=== PATIENT | female | born 1955 ===

== ENCOUNTER 2024-07-18 11:30 | Inpatient (IN) | payer OTHER ==
[~2024-07-18] VITALS: Ht 165.1 cm; Wt 79.4 kg
[~2024-07-18 11:30] MED LIST: ARICEPT10 MG PO; ATIVAN0.5 M1 PO; BENADRYL25 MG PO; BENTIL; MELATONIN10 MG PO; OMEPRAZOLE20 MG PO; VITAMIN B125000 MCG PO; VITAMIN C100 MG; ZOLOFT100 MG PO; ZOLPIDEM TART1.75 MG
[2024-07-24] MEDS ORDERED: ERTAPENEM SODIUM 1,000 MG VIAL ONE (10:33)
[2024-07-24] MEDS ORDERED: DICY20TA (15:23)
[2024-07-24] MEDS ORDERED: ONDANSETRON HCL 2 MG/ML VIAL IV PRN (16:30)
[2024-07-24] MEDS ORDERED: RINGERS SOLUTION,LACTATED 1,000 ML IV SCH (16:30)
[2024-07-24] MEDS ORDERED: METOCLOPRAMIDE HCL 5 MG/ML VIAL IV SCH (17:00)
[2024-07-24] MEDS ORDERED: POLYETHYLENE GLYCOL 3350 17 GM BLIST.PACK PO SCH (17:00)
[2024-07-24] MEDS ORDERED: HYOSCYAMINE SULFATE 0.125 MG TAB.SUBL SL SCH (17:00)
[2024-07-24] MEDS ORDERED: GABAPENTIN 300 MG CAPSULE PO SCH (17:00)
[2024-07-24] MEDS ORDERED: SIMETHICONE 125 MG CAPSULE PO SCH (17:00)
[2024-07-24] MEDS ORDERED: MORPHINE SULFATE 4 MG/ML VIAL IV ONE ×2 (17:05→18:05)
[2024-07-24 18:23] LABS: BASO % 0.2 % (0.1-1.2); EOS # 0.01 (0.04-0.54); EOS % 0.2 % (0.7-7.0); HEMATOCRIT 41.2 % (34.1-44.9); HEMOGLOBIN 13.9 g/dL (11.2-15.7); LYMPH # 1.31 (1.18-3.74); LYMPH % 21.3 % (19.3-53.1); MEAN CORPUSCULAR HEMOGLOBIN 29.4 pg (25.6-32.2); MONO # 0.46 (0.24-0.82); MONO % 7.5 % (4.7-12.5); NEUT # 4.34 (1.56-6.13); NEUT % 70.5 % (34.0-71.1); PLATELET COUNT 228 K/uL (163-369); RED BLOOD COUNT 4.72 M/uL (3.93-5.22); RED CELL DISTRIBUTION WIDTH 13.2 % (11.6-14.4)
[2024-07-24] MEDS ORDERED: ACETAMINOPHEN 500 MG GEL..CAP PO SCH (20:00)
[2024-07-24] MEDS ORDERED: PATIENTS OWN MEDICATION (MEDICAMENTO EN PISO) PO SCH (21:00)
[2024-07-24] MEDS ORDERED: SERTRALINE HCL 50 MG TABLET PO SCH (21:00)
[2024-07-24] MEDS ORDERED: PRIMIDONE 50 MG TABLET PO SCH (21:00)
[2024-07-24] MEDS ORDERED: FAMOTIDINE/PF 20 MG/2 ML VIAL IV PUSH SCH (21:00)
[2024-07-24] MEDS ORDERED: FAMOTIDINE/PF 20 MG/2 ML VIAL ONE (21:19)
[2024-07-24 21:40] VITALS: BP 172/122; O2SAT 95
[2024-07-24] MEDS ORDERED: ENALAPRILAT DIHYDRATE 1.25 MG/ML VIAL IV ONE (23:00)
[2024-07-24] MEDS ORDERED: LABETALOL HCL 100 MG/20 ML ML IV ONE (23:00)
[2024-07-24] MEDS ORDERED: TRAMADOL HCL 50 MG TABLET PO ONE (23:00)
[2024-07-24 23:09] VITALS: BP 144/83
[2024-07-25] MEDS ORDERED: TRAMADOL HCL 50 MG TABLET PO PRN
[2024-07-25 01:05] VITALS: BP 135/89; O2SAT 100
[2024-07-25 08:00] VITALS: BP 101/66; O2SAT 97
[2024-07-25] MEDS ORDERED: LACTOBACILLUS ACIDOPHILUS 1 CAP CAP PO SCH (09:00)
[2024-07-25] MEDS ORDERED: LACTULOSE 20 G/30 ML BLIST.PACK PO SCH (09:00)
[2024-07-25 09:40] LABS: BASO % 0.1 % (0.1-1.2); HEMATOCRIT 38.7 % (34.1-44.9); HEMOGLOBIN 12.8 g/dL (11.2-15.7); LYMPH # 0.82 (1.18-3.74); LYMPH % 8.3 % (19.3-53.1); MEAN CORPUSCULAR HEMOGLOBIN 28.6 pg (25.6-32.2); MONO # 0.57 (0.24-0.82); MONO % 5.8 % (4.7-12.5); NEUT # 8.48 (1.56-6.13); NEUT % 85.5 % (34.0-71.1); PLATELET COUNT 221 K/uL (163-369); RED BLOOD COUNT 4.48 M/uL (3.93-5.22); RED CELL DISTRIBUTION WIDTH 13.3 % (11.6-14.4)
[2024-07-25 10:40] LABS: ALBUMIN 2.6 gm/dL (3.4-5.0); CALCIUM 8.2 mg/dL (8.5-10.1); CREATININE SERUM 0.73 mg/dL (0.55-1.02); GFR 79.05; MAGNESIUM 1.6 mg/dL (1.8-2.4); PHOSPHOROUS 3.8 mg/dL (2.5-4.9); POTASSIUM 4.74 mEq/L (3.5-5.1)
[2024-07-25] MEDS ORDERED: MAGNESIUM SULFATE IN WATER 50 ML IV ONE (11:45)
[2024-07-25] MEDS ORDERED: ENOXAPARIN SODIUM 40 MG/0.4 ML SYRINGE SUBCUTANEO SCH (17:00)
[2024-07-25] MEDS ORDERED: SIMVASTATIN 20 MG TABLET PO SCH (17:00)
[2024-07-25 17:44] VITALS: BP 128/82; O2SAT 95
[2024-07-25] MEDS ORDERED: ZOLPIDEM TARTRATE 10 MG TABLET PO SCH (21:00)
[2024-07-25] MEDS ORDERED: LORazepam 0.5 MG TABLET PO SCH (21:00)
[2024-07-26 01:16] VITALS: BP 116/71; O2SAT 97
[2024-07-26 08:00] VITALS: BP 142/94; O2SAT 99
[2024-07-26] MEDS ORDERED: ENOXAPARIN SODIUM 40 MG/0.4 ML SYRINGE SUBCUTANEO SCH (09:00)
[2024-07-26 11:36] LABS: BASO % 0.1 % (0.1-1.2); EOS # 0.04 (0.04-0.54); EOS % 0.5 % (0.7-7.0); HEMOGLOBIN 12.7 g/dL (11.2-15.7); LYMPH # 0.41 (1.18-3.74); LYMPH % 4.9 % (19.3-53.1); MEAN CORPUSCULAR HEMOGLOBIN 29.1 pg (25.6-32.2); MONO # 0.37 (0.24-0.82); MONO % 4.4 % (4.7-12.5); NEUT # 7.49 (1.56-6.13); NEUT % 89.4 % (34.0-71.1); RED BLOOD COUNT 4.36 M/uL (3.93-5.22); RED CELL DISTRIBUTION WIDTH 13.4 % (11.6-14.4)
[2024-07-26 11:47] LABS: PLATELET COUNT 162 K/uL (163-369)
[2024-07-26 11:49] LABS: CALCIUM 8.5 mg/dL (8.5-10.1); CREATININE SERUM 0.52 mg/dL (0.55-1.02); GFR 116.92; MAGNESIUM 2.1 mg/dL (1.8-2.4); PHOSPHOROUS 2.4 mg/dL (2.5-4.9); POTASSIUM 3.68 mEq/L (3.5-5.1)
[2024-07-26] MEDS ORDERED: POTASSIUM PHOS,M-BASIC-D-BASIC 3 MM/ML VIAL IV ONE (12:15)
[2024-07-26] MEDS ORDERED: NAPH,MB-DB/K PH,MBDB 1 PKT PACKET PO STA (13:41)
[2024-07-26 17:01] VITALS: BP 136/83; O2SAT 94
== END 2024-07-26 18:21 | disposition home or self-care (01) | DRG 330 ==
LOC: O/R 07-24 06:53 → SURH 07-24 11:30 → SURG 07-24 16:58 → SURH 07-24 17:23
PROVIDERS: Internal Medicine Geriatric Medicine; ADMIT Colon & Rectal Surgery; ATTEND Colon & Rectal Surgery
PROC: 0DBP4ZZ Excision of Rectum, Percutaneous Endoscopic Approach (ICD-10-PCS; 2024-07-24)
PROC: 8E0W4CZ Robotic Assisted Procedure of Trunk Region, Percutaneous Endoscopic Approach (ICD-10-PCS; 2024-07-24)
PROC: 0DJD8ZZ Inspection of Lower Intestinal Tract, Via Natural or Artificial Opening Endoscopic (ICD-10-PCS; 2024-07-24)
PROC: 0DTN4ZZ Resection of Sigmoid Colon, Percutaneous Endoscopic Approach (ICD-10-PCS; principal; 2024-07-24 13:30)
DX: K57.32 Diverticulitis of large intestine without perforation or abscess without bleeding (principal); K92.1 Melena
CPT/HCPCS: 44207; 44213; S2900